=== PATIENT | male | born 1980 | race Two or more races ===

== ENCOUNTER 2021-10-21 21:23 | Emergency (ER) | payer BC ==
[~2021-10-21] VITALS: Ht 175.3 cm; Wt 95.4 kg
[2021-10-21 22:30] VITALS: BP 134/86
--- NOTE | 2021-10-21 22:51 | PHYS DOC ---
Past Medical History Past Surgical History: No Surgical History General Adult EDM: Chief Complaint: ELBOW PROBLEM HPI: HPI: Patient is a 41 year old male who presents with painless left elbow swelling. He just noticed this today. He is here visiting from [facility], having a vacation with family. He admits that he has been performing a lot of activities including swimming. He has no recollection of any specific trauma or injury to his elbow. There is a localized, round area of rubbery swelling on his posterior olecranon. No previous history of known bursitis. He denies any swelling of the arm or forearm. He denies shoulder pain. He denies numbness or tingling or motor weakness. No open wounds. He reports that he was not sure what it was, became concerned and wanted to be checked. Review of Systems: Review of Systems: Constitutional: Denies fever or chills. [] Respiratory: Denies cough or shortness of breath. [] Cardiovascular: Denies chest pain or edema. [] Musculoskeletal: Denies back pain or joint pain. Soft tissue swelling of the left posterior elbow, olecranon bursitis. Integument: Denies rash. Denies open wounds, skin warmth or pain. Neurologic: Denies headache, focal weakness or sensory changes. [] Heart Score: C/O Chest Pain: No Risk Factors: Risk Factors: DM, Current or recent (<one month) smoker, HTN, HLP, family history of CAD, obesity. Risk Scores: Score 0 - 3: 2.5% MACE over next 6 weeks - Discharge Home Score 4 - 6: 20.3% MACE over next 6 weeks - Admit for Clinical Observation Score 7 - 10: 72.7% MACE over next 6 weeks - Early Invasive Strategies Physical Exam: PE: Constitutional: Well developed, well nourished, no acute distress, non-toxic appearance. [] HENT: Normocephalic Neck: Trachea is midline. Cardiovascular: +2 radial pulse of the left upper extremity. Warm and well perfused. No peripheral edema. Lungs & Thorax: Respirations are nonlabored. Skin: Warm, dry, no erythema, no rash. [] Extremities: No tenderness, no cyanosis, no clubbing, ROM intact, no edema. There is around, rubbery, mobile olecranon bursitis of the left elbow. No warmth or erythema. No tenderness. No bony tenderness. Full painless range of motion of the left elbow with flexion and extension. Full painless range of motion of the left shoulder, left arm, left forearm, left wrist, left hand and digits. No wounds are noted. Compartments are soft. No wrist drop. Normal industrial safety engineer strength. Neurologic: Alert and oriented X 3, normal motor function, normal sensory function, no focal deficits noted. [] Psychologic: Affect normal, judgement normal, mood normal. [] Current Patient Data: Vital Signs: Vital Signs Date Time Temp Pulse Resp B/P (MAP) Pulse Ox O2 Delivery O2 Flow Rate FiO2 10/21/21 22:30 98.0 72 18 134/86 (102) 98 Room Air 98.0 EKG: EKG: [] Radiology/Procedures: Radiology/Procedures: [] Course & Med Decision Making: Course & Med Decision Making I have discussed the findings, differential diagnosis and plan of care with the patient. He has painless olecranon bursitis. No evidence of infection. I explained that there is no acute emergent intervention required. No imaging is necessary. He denies trauma or pain. I recommend he contact his PCP in [place] for follow-up. He may ultimately require outpatient orthopedic surgery consultation. But I did explain to him that often these are left alone, and surgery is not necessarily required must become painful, terribly bothersome or for any signs of secondary infection. Return precautions are given. He verbalizes understanding. Esau Disclaimer: Esau Disclaimer: This electronic medical record was generated, in whole or in part, using a voice recognition dictation system. Departure Departure Impression: Primary Impression: Olecranon bursitis, left elbow Disposition: HOME / SELF CARE / HOMELESS Condition: STABLE Referrals: NON,STAFF (PCP) Patient Instructions: Olecranon Bursitis Additional Instructions: There is nothing specific to do for bursitis. Please contact your primary care physician in [place] to discuss possible outpatient orthopedic referral. Generally these will either resolve on their own or may persist possibly for years. As long as it is not limiting your function or causing you pain and you are not developing any infection, there is no specific intervention necessarily required. Seek emergency care for severe redness, red streaks up or down your arm, fever of 100.4 or higher, severe pain, acute injury or trauma or any other concerns. You may ice and elevate to help with swelling, though generally this is minimally helpful. CESILIA COYLE DO Oct 21, 2021 22:51
== END 2021-10-21 23:40 | disposition home or self-care (01) ==
LOC: ER 21:23
DX: M70.22 Olecranon bursitis, left elbow (principal); Y93.89 Activity, other specified
CPT/HCPCS: 99281